=== PATIENT | female | born 1965 | race Caucasian/White ===

== ENCOUNTER 2020-03-01 17:50 | Emergency (ER) | payer BC ==
[~2020-03-01] VITALS: Ht 170.1 cm; Wt 81.6 kg
[2020-03-01] MEDS ORDERED: NORCO 10-325 T1 EACH PO (18:47)
== END 2020-03-01 19:30 | disposition home or self-care (01) ==
LOC: ED 17:50
DX: S62.102A Fracture of unspecified carpal bone, left wrist, initial encounter for closed fracture (principal); F17.200 Nicotine dependence, unspecified, uncomplicated; X58.XXXA Exposure to other specified factors, initial encounter; Y93.89 Activity, other specified; Y92.89 Other specified places as the place of occurrence of the external cause; Y99.8 Other external cause status